=== PATIENT | male | born 1945 | race Caucasian/White ===

== ENCOUNTER 2022-07-19 15:47 | Inpatient (IN) | payer MEDICARE, OTHER ==
[~2022-07-19] VITALS: Ht 170.2 cm; Wt 59.0 kg
[2022-07-19] MEDS ORDERED: AMLO-212 PO (16:56)
[2022-07-19] MEDS ORDERED: PIMA34CA PO (16:56)
[2022-07-19] MEDS ORDERED: FAMO20TA8 PO (16:56)
[2022-07-19] MEDS ORDERED: POLY17PO4 PO (16:56)
[2022-07-19] MEDS ORDERED: OXYC-128 PO (16:56)
[2022-07-19] MEDS ORDERED: ALBU2.5V38 IH (16:56)
[2022-07-19] MEDS ORDERED: MAGN400O6 PO (16:56)
[2022-07-19] MEDS ORDERED: TRAZ-182 PO (16:56)
[2022-07-19] MEDS ORDERED: AMAN100T PO (16:56)
[2022-07-19] MEDS ORDERED: MELA5TAB PO (16:56)
[2022-07-19] MEDS ORDERED: LINA145C PO (16:56)
[2022-07-19] MEDS ORDERED: ACET-868 PO (16:56)
[2022-07-19] MEDS ORDERED: BISA10SU11 RC (16:56)
[2022-07-19] MEDS ORDERED: IPRA0.2S9 IH (16:56)
[2022-07-19] MEDS ORDERED: MAG30ORA PO (16:56)
[2022-07-19] MEDS ORDERED: TERA10CA4 PO (16:56)
[2022-07-19] MEDS ORDERED: SAFI100T PO (16:56)
[2022-07-19] MEDS ORDERED: POLY15DR40 EACHEYE (16:56)
[2022-07-19] MEDS ORDERED: DOCU250C14 PO (16:56)
[2022-07-19] MEDS ORDERED: MULT-447 PO (16:56)
[2022-07-19] MEDS ORDERED: METO25TA20 PO (16:56)
[2022-07-19] MEDS ORDERED: FINA5TAB4 PO (16:56)
[2022-07-19] MEDS ORDERED: CARB1TAB24 PO (16:56)
[2022-07-19] MEDS ORDERED: MORPHINE SULFATE INJ 4 MG/ML DISP.SYRIN ONE (16:59)
[2022-07-19] MEDS ORDERED: PANTOPRAZOLE 40 MG VIAL ONE (16:59)
[2022-07-19] MEDS ORDERED: ONDANSETRON HCL/PF 4 MG/2 ML VIAL ONE (16:59)
[2022-07-19] MEDS ORDERED: ONDANSETRON HCL/PF 4 MG/2 ML VIAL IVP ONE (17:00)
[2022-07-19] MEDS ORDERED: IV NS 0.9% 1,000 ML BAG IV ONE (17:00)
[2022-07-19] MEDS ORDERED: PANTOPRAZOLE 40 MG VIAL IV ONE (17:00)
[2022-07-19] MEDS ORDERED: MORPHINE SULFATE INJ 2 MG/ML DISP.SYRIN IV ONE (17:00)
[2022-07-19 18:15] LABS: CALCIUM, SERUM 8.6 mg/dL (8.5-10.1); CREATININE 1.1 mg/dL (0.6-1.3); POTASSIUM 3.7 mmol/L (3.5-5.1)
[2022-07-19 18:25] LABS: ALBUMIN 3.9 g/dL (3.4-5.0); BILIRUBIN,DIRECT 0.3 mg/dL (0.0-0.2); BILIRUBIN,TOTAL 0.8 mg/dL (0.2-1.0); TOTAL PROTEIN, SERUM 7.4 g/dL (6.4-8.2)
[2022-07-19 19:55] LABS: BASOPHILS % (AUTO) 0.1 % (0.0-2.0); EOSINOPHILS % (AUTO) 3.9 % (0.0-6.0); HEMATOCRIT 43 % (39-51); HEMOGLOBIN 14.7 g/dL (13.5-17.5); LYMPHOCYTES # (AUTO) 0.8 K/uL (0.8-4.8); LYMPHOCYTES % (AUTO) 14.3 % (20.0-44.0); MEAN CORPUSCULAR HGB CONC 35 g/dl (31.0-36.0); MEAN CORPUSCULAR VOLUME 91 fL (80-96); MONOCYTES # (AUTO) 0.6 K/uL (0.1-1.30); MONOCYTES % (AUTO) 9.6 % (2.0-12.0); NEUTROPHILS # (AUTO) 4.2 K/uL (1.8-8.9); NEUTROPHILS % (AUTO) 72.1 % (43.0-81.0); PLATELET COUNT (AUTO) 160 K/uL (150-450); RED BLOOD CELL COUNT(AUTO) 4.69 MIL/uL (4.5-6.0); WHITE BLOOD COUNT (AUTO) 5.8 K/uL (4.3-11.0)
[2022-07-19 20:39] LABS: BILIRUBIN,URINE 1+ (NEGATIVE); COLOR,URINE YELLOW (YELLOW); LEUKOCYTE ESTERASE ,URINE NEGATIVE (NEGATIVE); NITRITE, URINE NEGATIVE (NEGATIVE); PROTEIN,URINE TRACE mg/dl (NEGATIVE); UGLUCOSE NEGATIVE (NEGATIVE)
[2022-07-19 20:46] LABS: BACTERIA,URINE None seen /HPF (None Seen); MUCUS,URINE Few /LPF (None Seen)
[2022-07-19 21:50] VITALS: BP 136/86
[2022-07-19] MEDS ORDERED: ONDANSETRON HCL/PF 4 MG/2 ML VIAL IVP PRN (23:00)
[2022-07-19] MEDS ORDERED: IV 1/2NS 1000 ML 1,000 ML IV PRN (23:00)
[2022-07-19] MEDS ORDERED: ZOLPIDEM TARTRATE 5 MG TABLET PO PRN (23:00)
[2022-07-19] MEDS ORDERED: MAG HYDROX/AL HYDROX/SIMETH 30 ML UDC PO PRN (23:00)
[2022-07-19] MEDS ORDERED: ACETAMINOPHEN 325 MG TABLET PO PRN (23:00)
[2022-07-19] MEDS ORDERED: Z GUARD REMEDY 4 OZ OINT TP PRN (23:00)
[2022-07-19] MEDS ORDERED: MAGNESIUM HYDROXIDE 30 ML UDC PO PRN (23:00)
[2022-07-19] MEDS ORDERED: DEXTROSE 50%-WATER 50 ML DISP.SYRIN IV PRN (23:30)
[2022-07-20] MEDS: ENOXAPARIN SODIUM 40 MG/0.4 ML DISP.SYRIN SQ SCH ×2 (00:03→20:51)
[2022-07-20] MEDS: BLOOD SUGAR DIAGNOSTIC 1 EACH STRIP IN SCH ×4 (06:26→21:34)
[2022-07-20] MEDS: INSULIN REGULAR, HUMAN 100 UNIT/ML 3 ML VIAL SQ PRN ×3 (06:27→17:12)
[2022-07-20 06:30] LABS: BASOPHILS % (AUTO) 0.3 % (0.0-2.0); EOSINOPHILS % (AUTO) 3.9 % (0.0-6.0); HEMATOCRIT 38 % (39-51); LYMPHOCYTES # (AUTO) 0.6 K/uL (0.8-4.8); LYMPHOCYTES % (AUTO) 13.7 % (20.0-44.0); MEAN CORPUSCULAR HGB CONC 34 g/dl (31.0-36.0); MEAN CORPUSCULAR VOLUME 91 fL (80-96); MONOCYTES # (AUTO) 0.4 K/uL (0.1-1.30); NEUTROPHILS # (AUTO) 3.2 K/uL (1.8-8.9); NEUTROPHILS % (AUTO) 73.1 % (43.0-81.0); PLATELET COUNT (AUTO) 154 K/uL (150-450); RED BLOOD CELL COUNT(AUTO) 4.16 MIL/uL (4.5-6.0); WHITE BLOOD COUNT (AUTO) 4.4 K/uL (4.3-11.0)
[2022-07-20 07:06] LABS: CALCIUM, SERUM 8.3 mg/dL (8.5-10.1); CARBON DIOXIDE 23 mmol/L (21-32); CHLORIDE 108 mmol/L (98-107); GLUCOSE 91 mg/dL (74-106); PHOSPHORUS 3.7 mg/dL (2.5-4.9); POTASSIUM 3.5 mmol/L (3.5-5.1); SODIUM SERUM 141 mmol/L (136-145); UREA NITROGEN, BLOOD 17 mg/dL (7-18)
[2022-07-20 07:28] LABS: THYROID STIMULATING HORMONE 1.653 uIU/mL (0.358-3.74)
[2022-07-20] MEDS: PANTOPRAZOLE 40 MG TABLET.DR PO SCH (07:36)
[2022-07-20 08:00] VITALS: BP 138/75
[2022-07-20] MEDS: CIPROFLOXACIN HCL 250 MG TABLET PO SCH ×2 (12:27→20:51)
[2022-07-20] MEDS: METRONIDAZOLE 500 MG TABLET PO SCH ×2 (14:01→20:49)
[2022-07-20 16:00] VITALS: BP 143/78
[2022-07-20 20:00] VITALS: BP 148/71
[2022-07-21] MEDS: METRONIDAZOLE 500 MG TABLET PO SCH ×3 (05:19→21:56)
[2022-07-21 06:03] LABS: BASOPHILS % (AUTO) 0.1 % (0.0-2.0); EOSINOPHILS % (AUTO) 1.1 % (0.0-6.0); HEMATOCRIT 41 % (39-51); HEMOGLOBIN 13.9 g/dL (13.5-17.5); LYMPHOCYTES # (AUTO) 0.8 K/uL (0.8-4.8); LYMPHOCYTES % (AUTO) 17.3 % (20.0-44.0); MEAN CORPUSCULAR HGB CONC 34 g/dl (31.0-36.0); MEAN CORPUSCULAR VOLUME 91 fL (80-96); MONOCYTES # (AUTO) 0.5 K/uL (0.1-1.30); MONOCYTES % (AUTO) 10.9 % (2.0-12.0); NEUTROPHILS # (AUTO) 3.4 K/uL (1.8-8.9); NEUTROPHILS % (AUTO) 70.6 % (43.0-81.0); PLATELET COUNT (AUTO) 155 K/uL (150-450); RED BLOOD CELL COUNT(AUTO) 4.47 MIL/uL (4.5-6.0); WHITE BLOOD COUNT (AUTO) 4.9 K/uL (4.3-11.0)
[2022-07-21] MEDS: BLOOD SUGAR DIAGNOSTIC 1 EACH STRIP IN SCH ×4 (06:03→22:13)
[2022-07-21 06:58] LABS: CALCIUM, SERUM 8.6 mg/dL (8.5-10.1); CARBON DIOXIDE 24 mmol/L (21-32); CHLORIDE 106 mmol/L (98-107); GLUCOSE 104 mg/dL (74-106); MAGNESIUM 2.1 mg/dL (1.8-2.4); PHOSPHORUS 3.9 mg/dL (2.5-4.9); POTASSIUM 3.5 mmol/L (3.5-5.1); SODIUM SERUM 139 mmol/L (136-145); UREA NITROGEN, BLOOD 13 mg/dL (7-18)
[2022-07-21] MEDS: PANTOPRAZOLE 40 MG TABLET.DR PO SCH (07:35)
[2022-07-21 08:00] VITALS: BP 146/77
[2022-07-21] MEDS: CIPROFLOXACIN HCL 250 MG TABLET PO SCH ×2 (08:48→21:56)
[2022-07-21] MEDS ORDERED: DICYCLOMINE HCL 10 MG CAPSULE PO PRN (10:00)
[2022-07-21] MEDS ORDERED: BISACODYL SUPP (10 MG) 10 MG/SUPP.RECT SUPP.RECT RC PRN (12:00)
[2022-07-21] MEDS: MULTIVIT W/MINERALS 1 TAB TABLET PO SCH (13:55)
[2022-07-21] MEDS: TERAZOSIN HCL 5 MG CAPSULE PO SCH (13:56)
[2022-07-21] MEDS: AMLODIPINE BESYLATE 5 MG TABLET PO SCH (13:56)
[2022-07-21] MEDS: CARBIDOPA/LEVODOPA 25/250 MG 1 UDTAB PO SCH ×3 (13:57→21:56)
[2022-07-21 16:09] VITALS: BP 144/80
[2022-07-21] MEDS: AMANTADINE HCL 100 MG CAPSULE PO SCH (17:06)
[2022-07-21] MEDS: METOPROLOL TARTRATE 25 MG TABLET PO SCH (17:06)
[2022-07-21] MEDS: POLYVINYL ALCOHOL 15 ML BOTTLE EACHEYE SCH (17:22)
[2022-07-21 20:00] VITALS: BP 93/56
[2022-07-21 20:29] VITALS: BP 93/56
[2022-07-21] MEDS ORDERED: TRAZODONE 50 MG TABLET PO SCH (22:00)
[2022-07-21] MEDS ORDERED: FINASTERIDE (5 MG) 5 MG TABLET PO SCH (22:00)
[2022-07-21] MEDS: ENOXAPARIN SODIUM 40 MG/0.4 ML DISP.SYRIN SQ SCH (22:02)
[2022-07-21] MEDS: INSULIN REGULAR, HUMAN 100 UNIT/ML 3 ML VIAL SQ PRN (22:13)
[2022-07-22 04:00] VITALS: BP 114/70
[2022-07-22] MEDS: METRONIDAZOLE 500 MG TABLET PO SCH ×2 (04:26→13:35)
[2022-07-22] MEDS: INSULIN REGULAR, HUMAN 100 UNIT/ML 3 ML VIAL SQ PRN ×2 (06:38→11:50)
[2022-07-22] MEDS: BLOOD SUGAR DIAGNOSTIC 1 EACH STRIP IN SCH ×2 (06:38→11:50)
[2022-07-22 08:00] VITALS: BP 128/73
[2022-07-22] MEDS: CARBIDOPA/LEVODOPA 25/250 MG 1 UDTAB PO SCH ×2 (08:34→13:35)
[2022-07-22] MEDS: TERAZOSIN HCL 5 MG CAPSULE PO SCH (08:41)
[2022-07-22] MEDS: METOPROLOL TARTRATE 25 MG TABLET PO SCH (08:41)
[2022-07-22] MEDS: MULTIVIT W/MINERALS 1 TAB TABLET PO SCH (08:41)
[2022-07-22 08:42] VITALS: BP 152/83
[2022-07-22] MEDS: AMANTADINE HCL 100 MG CAPSULE PO SCH (08:42)
[2022-07-22] MEDS: AMLODIPINE BESYLATE 5 MG TABLET PO SCH (08:42)
[2022-07-22] MEDS: PANTOPRAZOLE 40 MG TABLET.DR PO SCH (08:42)
[2022-07-22] MEDS: POLYVINYL ALCOHOL 15 ML BOTTLE EACHEYE SCH (08:44)
[2022-07-22] MEDS: CIPROFLOXACIN HCL 250 MG TABLET PO SCH (08:44)
[2022-07-22] MEDS ORDERED: SAFINAMIDE MESYLATE 100 MG PO SCH (09:00)
[2022-07-22] MEDS ORDERED: Medication Not On Formulary EA (Pimavanserin Tartrate (Nuplazid) 34 MG) PO SCH (09:00)
[2022-07-22] MEDS ORDERED: Medication Not On Formulary EA (Linaclotide (Linzess) 145 MCG) PO SCH (09:00)
[2022-07-22] MEDS ORDERED: DOCUSATE SODIUM 250 MG CAPSULE PO SCH (09:00)
== END 2022-07-22 15:59 | DRG 392 ==
LOC: ER 15:50 → MED 21:05
PROVIDERS: ADMIT Student in an Organized Health Care Education/Training Program; ATTEND Nurse Practitioner Family
DX: A08.4 Viral intestinal infection, unspecified (principal); F20.0 Paranoid schizophrenia; Z20.822 Contact with and (suspected) exposure to COVID-19; F02.80 Dementia in other diseases classified elsewhere, unspecified severity, without behavioral disturbance, psychotic disturbance, mood disturbance, and anxiety; G20 Parkinson's disease; Z66 Do not resuscitate; K21.9 Gastro-esophageal reflux disease without esophagitis; I10 Essential (primary) hypertension; J45.909 Unspecified asthma, uncomplicated; N40.0 Benign prostatic hyperplasia without lower urinary tract symptoms; Z79.51 Long term (current) use of inhaled steroids; Z79.899 Other long term (current) drug therapy; Z51.5 Encounter for palliative care; E86.0 Dehydration; Z91.81 History of falling; E11.9 Type 2 diabetes mellitus without complications; R26.9 Unspecified abnormalities of gait and mobility
CPT/HCPCS: 36415; 70450-TC; 71045-TC; 80048-TC; 80076-TC; 81001; 82962-TC; 83605-TC; 83690-TC; 83735-TC; 84100-TC; 84443-TC; 85025-TC; 85730-TC; 87040-TC; 87081-TC; 87086-TC; 92526; 92611-TC; 97116-TC; 97530-TC; A4223; C9113; C9803; G0378; J1650; J1815; J2270; J2405; J3490